=== PATIENT | male | born 1985 | race Caucasian/White ===

== ENCOUNTER → 2021-07-04 11:18 | Outpatient (CLI) | payer OTHER, SELFPAY ==
--- NOTE | 2021-07-04 11:20 | DI.RAD.S_ITS ---
PROCEDURE: XR ANKLE RT MIN 3V INDICATIONS: right ankle injury TECHNIQUE: 3 views of the ankle were acquired. COMPARISON: None. FINDINGS: Bones: Fracture of the tip of the medial malleolus with mild displacement. No dislocations. Ankle mortise is within normal limits. No suspicious bony lesions. Soft tissues: Trace tibiotalar joint effusion. Achilles tendon appears normal. IMPRESSION: Medial malleolus fracture. Dictated by: Elieser Sanchez M.D. on 07/04/2021 at 11:39 Approved by: Elieser Sanchez M.D. on 07/04/2021 at 11:41
== END ==
PROVIDERS: Referring Provider Physician Assistant; Visit Provider Physician Assistant
DX: S82.51XA Displaced fracture of medial malleolus of right tibia, initial encounter for closed fracture (principal); X58.XXXA Exposure to other specified factors, initial encounter
CPT/HCPCS: 73610